=== PATIENT | female | born 1985 | race American Indian/Alaskan Native ===

== ENCOUNTER 2018-03-25 01:17 | Inpatient (IN) | payer OTHER ==
[2018-03-25 02:11] VITALS: BMI 55.1
[2018-03-25] MEDS ORDERED: Lactated Ringer's 1,000 ML IV SCH ×2 (02:15→02:45)
[2018-03-25 02:46] LABS: BASO # 0.1 K/uL (0.0-0.2); BASO % 0.6 % (0.0-2.0); EOS # 0.1 K/uL (0.0-0.7); EOS % 0.9 % (0.0-4.0); HEMOGLOBIN 9.7 g/dL (12.0-16.0); LYMPH # 1.7 K/uL (1.0-4.3); LYMPH % 16.5 % (20.0-40.0); MEAN CELL VOLUME 92.1 fl (81.0-99.0); MEAN CORPUSCULAR HGB CONC 32.6 g/dL (33.0-37.0); MEAN PLATELET VOLUME 8.5 fl (7.2-11.7); MONO # 1.2 K/uL (0.0-0.8); MONO % 11.8 % (0.0-10.0); NEUT # 7.1 K/uL (1.8-7.0); NEUT % 70.2 % (50.0-75.0); RBC 3.24 Mil/uL (3.80-5.20); RED CELL DISTRIBUTION WIDTH 15.6 % (11.5-14.5); WHITE BLOOD COUNT 10.1 K/uL (4.8-10.8)
[2018-03-25] MEDS ORDERED: Oxytocin 30 UNIT 30 UNITS/500 ML BAG IV ONE (03:09)
[2018-03-25] MEDS ORDERED: OXYTOCIN/0.9 % NS 20 UNIT/1,000 ML BAG IV SCH ×2 (03:15→08:58)
[2018-03-25] MEDS ORDERED: Fentanyl/Bupivacaine HCl 250 ML EPI ONE (03:21)
[2018-03-25] MEDS ORDERED: Benzocaine/Menthol SPRAY TOP PRN ×2 (05:46→08:58)
[2018-03-25] MEDS ORDERED: Oxycodone/Acetaminophen 5/325 mg Tab PO PRN ×2 (05:46→08:58)
--- NOTE | 2018-03-25 08:50 | OBADHP ---
Datetime: 03/25/2018 01:51 Admit Comment, IP Provider: BRITTANIE: 03/22/2018 LMP: 06/15/2017 PNP: Dr. Kerr 33 y/o @ 40.3wks with BRITTANIE 03/22/2018 (based off of 1st trimester ultrasound) is presenting with complaints of irregular contractions since 9pm this evening, 03/02, sharp in nature. She endors es some spotting, which she noticed while in the bathroom during current admission _ + FM. She denies any complications during this , loss of fluid, f/c/n/v/d, chest pain, shortness of breath o r dysuria . ROS: 12 points reviewed _ negative unless stated otherwise in HPI. OBGYNhx: , 10/21/2010 7lbs, M at 41 wks 1 miscarriage, 2006 PMH: Iron deficiency anemia, childhood asthma Family Hx: non-contributory Social: Denies tob, EtOH, drugs Surg Hx: wisdom tooth extraction Allergies: Penicillin-itching, Tree nuts- hives Meds: PNV, iron pills VS: 127/85 Pulse-104bpmbpm SPO2-100% PE: lying supine positing breathing comfortably, with some facial grimacing CV: s1s2 RRR Lungs: Respiratory effort wnl, cta b/l, no wheezes Abdomen: Gravid, BS + FHT: early decels Pelvic: Nurse Fanta as chain carrier (Dr. Gillespie, 4-5cm dilated) Extremities: calves nontender, nonedematous A/P: 33 y/o @ 40.3wks with LMP:06/15/2017 _ BRITTANIE 03/22/2018 (based off of 1st trimester ultraso und) is presenting with complaints of irregular contractions with early decels noted on FHR monitorin g. -Oxygen via NC administered, alternating maternal position b/w left lat decubital _ right lat decu bital position. -LR. -Admit to L_ D with continuous monitoring. -Labor protocol initiated. Patient seen and examined with Dr. Gillespie. Dr. COLLIN Abraham, FM, PGY-1 Addendum: I saw and examined patient at presentation. Admit for management of labor and delivery. Verna Herrera Provider: Negative Vital Signs Provider: Reviewed IP Chief Complaint: Uterine contractions (Annotations: Data stored by CPN on behalf of user) NICHD Variability Prov Fetus A: Moderate 6-25bpm NICHD Decel Fetus A IP Provider: Early Dilatation, Provider: 4-5cm EGA AdmitDate IP: 40.3 IP Adm Impression: Term, intrauterine IP Admit Plan: Admit to unit
--- NOTE | 2018-03-25 09:03 | OBDS ---
DELIVERY PERSONNEL Unindentured Apprentice: Chika Wilson RN Anesthesiologist: Lindsey Chawla MD MATERNAL INFORMATION Delivery Anesthesia: Epidural Medications in Delivery: Pitocin Estimated Blood Loss (ml): 200 Placenta Cultured: Yes Maternal Complications: Abruptio Placenta Provider Comments: . Pt delivered viable female with apgars 9/9. Placenta delivered spont after infant. Placen ta delivery quick and suspicious for placental abruption. Uterus firm and approp hemostatic. First degree perineal laceration repaired. pt tolerated dleivery and repair well. Peds present after deli very for infant evaluation. Discussed delivery with patient. LABOR SUMMARY EDC: 03/22/2018 00:00 No. Babies in Womb: 0 Attempted: No Labor Anesthesia: Epidural LABOR INFORMATION Reason for Induction: Not Applicable Onset of Labor: 03/25/2018 02:03 Complete Dilatation: 03/25/2018 04:08 Oxytocin: N/A Group B Beta Strep: Negative Antibiotics # of Doses: N/A Antibiotics Time of Last Dose: N/A Steroids Given: None Reason Steroids Not Administered: Not Applicable MEMBRANES Membranes Rupture Method: Artificial Rupture of Membranes: 03/25/2018 04:15 Length of Rupture (hrs): 0.03 Amniotic Fluid Color: Clear Amniotic Fluid Amount: Small Amniotic Fluid Odor: None STAGES OF LABOR Stage 1 hrs: 2 Stage 1 min: 5 Stage 2 hrs: 0 Stage 2 min: 9 Stage 3 hrs: 0 Stage 3 min: 0 Total Time in Labor hrs: 2 Total Time in Labor min: 14 VAGINAL DELIVERY Laceration Extension: First Degree Laceration Repair: Yes Initial Vag Sponge Count: 5 laps _ 10 4x4's Final Vag Sponge Count: 5 laps _ 10 4x4's Initial Vag Sharps Count: 2 Final Vag Sharps Count: 2 Sponge Count Correct: Yes Sharps Count Correct: Yes BABY A INFORMATION Infant Delivery Date/Time: 03/25/2018 04:17 Method of Delivery: Vaginal Born in Route : No : N/A Forceps: N/A Vacuum Extraction: N/A Shoulder Dystocia : No SHOULDER DYSTOCIA BABY A Delivery Date/Time: 03/25/2018 04:17 PRESENTATION/POSITION BABY A Presentation: Cephalic Cephalic Presentation: Vertex Breech Presentation: N/A PLACENTA INFORMATION BABY A Placenta Delivery Time : 03/25/2018 04:17 Placenta Method of Delivery: Spontaneous Placenta Status: Delivered SCORES BABY A Heart Rate 1 min: >100 bpm Resp Effort 1 min: Good Cry Reflex Irritability 1 min: Cough or Sneeze or Pulls Away Muscle Tone 1 min: Active Motion Color 1 min: Body [place], Extremities Blue Resuscitation Effort 1 min: Tactile Stimulation SCORE 1 MIN: 9 Heart Rate 5 min: >100 bpm Resp Effort 5 min: Good Cry Reflex Irritability 5 min: Cough or Sneeze or Pulls Away Muscle Tone 5 min: Active Motion Color 5 min: Body [place], Extremities Blue Resuscitation Effort 5 min: N/A SCORE 5 MIN: 9 INFANT INFORMATION BABY A Gestational Age at Delivery: 40.3 Gestational Status: Term Infant Outcome : Liveborn Infant Condition : Stable Sex: Male IDENTIFICATION/MEDS BABY A ID Band Number: [id number] ID Band Location: Left Leg; Left Arm WEIGHT/LENGTH BABY A Infant Birthweight (gms): 3130 Infant Weight (lb): 6 Infant Weight (oz): 14 CORD INFORMATION BABY A No. Cord Vessels: 3 Nuchal Cord : Around Neck x1, Loose Nuchal Cord Other: 0 True Knot: 0 Cord pH Baby Arterial: 7.15 Infant Cord pH Baby Venous: N/A Cord Blood Taken: Yes Banking/Donate Info: N/A Suction: Mouth; Nose ASSESSMENT BABY A Infant Complications: Extended Bradycardia Physical Findings at Delivery: Within Normal Limits Respirations: Appears Normal Junior Account Executive/ALS Called : No Care By: Dr. Gonzalez Transferred To: Remains with Mother
[2018-03-26 07:20] LABS: BASO % 0.1 % (0.0-2.0); EOS # 0.2 K/uL (0.0-0.7); EOS % 1.7 % (0.0-4.0); HEMOGLOBIN 8.3 g/dL (12.0-16.0); LYMPH # 1.9 K/uL (1.0-4.3); LYMPH % 18.9 % (20.0-40.0); MEAN CELL VOLUME 91.2 fl (81.0-99.0); MEAN CORPUSCULAR HEMOGLOBIN 30.3 pg (27.0-31.0); MEAN CORPUSCULAR HGB CONC 33.2 g/dL (33.0-37.0); MEAN PLATELET VOLUME 8.1 fl (7.2-11.7); MONO # 1.1 K/uL (0.0-0.8); MONO % 10.5 % (0.0-10.0); NEUT % 68.8 % (50.0-75.0); RBC 2.75 Mil/uL (3.80-5.20); RED CELL DISTRIBUTION WIDTH 15.3 % (11.5-14.5); WHITE BLOOD COUNT 10.2 K/uL (4.8-10.8)
--- NOTE | 2018-03-26 09:27 | OBPPN ---
Datetime: 03/26/2018 09:24 PP Pain Prov: Within normal limits PP Nausea Prov: Denies PP Flatus Prov: Yes PP BM Prov: Yes PP Breasts Prov: Normal PP Heart Prov: Normal PP Lungs Prov: Normal PP Abdomen/Uterus Prov: Normal PP Lochia Prov: Normal PP Vulva/Perineum Prov: Normal PP CVA Tenderness Prov: Normal PP Extremities Prov: Normal PP Progress Prov: Normal PP Impression Prov: Normal progression PP Plan Prov: Continue present management PP Progress Note Prov: SHe feels fine H/H 01/17 A: S/P day 1 anemia - asymtpomtatic PLAN: anticipate discharge in AM;F[place]et 90 (at home) QD Vital Signs Provider PP: Reviewed; Within Normal Limits
--- NOTE | 2018-03-27 11:42 | OBPPN ---
Datetime: 03/27/2018 11:38 PP Pain Prov: Within normal limits PP Nausea Prov: Denies PP Flatus Prov: Yes PP BM Prov: Yes PP Breasts Prov: Normal PP Heart Prov: Normal PP Lungs Prov: Normal PP Abdomen/Uterus Prov: Normal PP Lochia Prov: Normal PP Vulva/Perineum Prov: Normal PP CVA Tenderness Prov: Normal PP Extremities Prov: Normal PP C/S Incision Prov: Not Applicable PP Progress Prov: Normal PP Comments Phys Exam Prov: Abdomen soft, nontender, nondistended Uterus firm, below umbilicus No deep calf tenderness bilaterally PP Impression Prov: Normal progression PP Plan Prov: Discharge PP Progress Note Prov: day #2 status post normal spontaneous vaginal delivery, patient re covering well Patient discharged to home with instructions and precautions Patient will follow up in office in 6 weeks for checkup Discussed plan with patient and all patient questions answered. IP PP Procedures: None Vital Signs Provider PP: Reviewed; Within Normal Limits
--- NOTE | 2018-03-27 11:45 | OBDCSUM ---
Datetime: 03/27/2018 07:48 Discharged to, Provider: Home Follow up at, Provider: [facility]. Disch Instr Activity: Normal activity Disch Instr Diet: Regular Discharge Instructions, Provider: Routine instructions given Discharge Diagnosis, Provider: Term Delivered Discharge Time: 03/27/2018 11:40 Follow up in weeks, Provider: in 4-6 weeks. Disch Referrals: None Contraception discussed, Prov: Yes Contraception after Delivery: Undecided
[2018-03-28 03:44] VITALS: BP 139/50; PULSE 95; RESP 20; TEMP 98.3; O2SAT 100
== END 2018-03-27 22:45 | disposition home or self-care (01) | DRG 805 ==
LOC: H.EROB2 01:17 → H.L&D 02:12 → H.OB/GYN 08:09
PROVIDERS: ADMIT Obstetrics & Gynecology; ATTEND Obstetrics & Gynecology
PROC: 0HQ9XZZ Repair Perineum Skin, External Approach (ICD-10-PCS; principal; 2018-03-25)
PROC: 10E0XZZ Delivery of Products of Conception, External Approach (ICD-10-PCS; 2018-03-25)
PROC: 4A1HXCZ Monitoring of Products of Conception, Cardiac Rate, External Approach (ICD-10-PCS; 2018-03-25)
DX: O76 Abnormality in fetal heart rate and rhythm complicating labor and delivery (principal); O45.93 Premature separation of placenta, unspecified, third trimester; Z37.0 Single live birth; O70.0 First degree perineal laceration during delivery; O69.81X0 Labor and delivery complicated by cord around neck, without compression, not applicable or unspecified; Z3A.40 40 weeks gestation of pregnancy